=== PATIENT | female | born 1975 | race Caucasian/White ===

== ENCOUNTER 2022-03-02 12:55 | Emergency (ER) | payer MEDICAID, SELFPAY ==
[2022-03-02 13:02] VITALS: BP 154/84; PULSE 76; RESP 16; TEMP 36.8; O2SAT 98; BMI 36.6
--- NOTE | 2022-03-02 13:15 | XR_ITS ---
WS: [id number] Exam: XR shoulder RT min 2V* [id number] Date/Time of Exam: 03/02/2022 1:16 PM Reason For Exam: fall injury There is a nondisplaced fracture of the greater tuberosity humerus. No other fractures of the shoulde r are noted. Soft tissues are unremarkable. The scapula appears to be intact. XR/XR shoulder RT min 2V* [id number] IMPRESSION: 1. Nondisplaced fracture through the greater tuberosity of the humerus. No othe r fractures noted.
--- NOTE | 2022-03-02 14:17 | W.ED.FALL ---
HPI - Fall General: Chief Complaint: Fall Stated Complaint: right arm pain, post fall Time Seen by Provider: 03/02/22 13:15 History of Present Illness: Patient is a 46-year-old female comes in the ED with right shoulder pain. Patient says she injured right shoulder after she fell 2 weeks ago. She rates her pain currently 9 out of 10 and its located in the back of shoulder and in the right upper arm. Pain worsens with any range of motion in shoulder. She has been taking ibuprofen to help with pain. Associated symptoms-after fall: Denies abdominal pain, chest pain, headache(s), hematuria or neck pain Review of Systems Const: Denies: fever(s), chills or fatigue Eyes: Denies: change in vision or eye discomfort ENMT: Denies: throat pain, odynophagia, nasal discharge or nasal congestion Card: Denies: chest pain, palpitations, edema, swelling of feet/ankles, dyspnea on exertion or orthopnea Resp: Denies: dyspnea, productive cough or non-productive cough GI: Denies: abdominal pain, nausea, vomiting, diarrhea, constipation or hematochezia : Denies: flank pain, dysuria or hematuria Musc: Reports: extremity pain (Right shoulder) and limited range of motion (Right shoulder); Denies: neck pain, back pain or extremity swelling Skin/Breast: Denies: rash or new lesions Neuro: Denies: headache(s), numbness in extremities or weakness in extremities [facility] ED PFSH: Medical History No pertinent family history Surgical History No pertinent past surgical history Physical Exam Const: COMMON NORMALS: patient oriented x3 and alert GENERAL APPEARANCE: cooperative HENMT: COMMON NORMALS: normocephalic HEAD & SCALP: normocephalic MOUTH: Normal oral and palatal mucosa present THROAT: posterior oropharynx normal and uvula midline Neck/C-Spine: COMMON NORMALS: supple GENERAL: Yes normal visual inspection Resp: COMMON NORMALS: normal respiratory effort, No retractions, No use of accessory muscles and clear to auscultation bilaterally AUSCULTATION: clear to auscultation bilaterally Cardio: COMMON NORMALS: regular rate, regular rhythm, S1 normal heart sound present, S2 normal heart sound present, No gallops present (Cardio), No clicks present (Cardio), No murmurs present (Cardio) and Peripheral pulses 2+ throughout RATE: regular rate RHYTHM: regular rhythm HEART SOUNDS: S1 normal heart sound present and S2 normal heart sound present PERIPHERAL PULSES: Peripheral pulses 2+ throughout GI: COMMON NORMALS: Normal to inspection, nondistended, normoactive bowel sounds present, Soft to palpation, non-tender and no masses PALPATION: Yes Soft to palpation : COMMON NORMALS: Yes no CVA tenderness BLADDER/KIDNEY EXAM: Yes no CVA tenderness Back/Pelvis: COMMON NORMALS: no CVA tenderness Extremity: COMMON NORMALS: normal to inspection NARRATIVE EXTREMITY EXAM: Patient has some tenderness around the AC joint of right shoulder. Limited range of motion especially abduction of right arm due to pain. Neurovascular intact distally. Neuro: COMMON NORMALS: patient oriented x3 SENSORIUM/ORIENTATION: Yes alert GAIT: Yes Normal gait present Skin: GENERAL SKIN EXAM: dry skin Course Vital Signs: Vital signs: Vital Signs Temperature 98.3 F 03/02/22 13:02 Pulse Rate 76 03/02/22 13:02 Respiratory Rate 16 03/02/22 13:02 Blood Pressure 154/84 03/02/22 13:02 Pulse Oximetry 98 03/02/22 13:02 Oxygen Delivery Me thod 03/02/22 13:02 MDM - Fall Medical Decision Making Patient is a 46-year-old female comes in the ED with right shoulder pain. Patient says she injured right shoulder after she fell 2 weeks ago. She rates her pain currently 9 out of 10 and its located in the back of shoulder and in the right upper arm. Vitals are stable. She has tenderness over the AC joint of right shoulder and limited range of motion especially abduction of right arm due to pain. Neurovascular tact distally. X-ray of right shoulder showed a nondisplaced fracture through the greater tuberosity of the humerus. I placed order with case management for patient be referred to Ortho for follow-up. Patient was placed in a shoulder immobilizer and sent home with a prescription for muscle relaxer and hydrocodone for pain. Return to ED precautions given. Patient understood and agreed with plan. Lab Data Radiology Impressions Shoulder X-Ray 03/02/22 13:15 IMPRESSION: 1. Nondisplaced fracture through the greater tuberosity of the humerus. No other fractures noted. Discharge Plan Discharge Patient Disposition: Home Clinical Impression: Fracture, humerus Qualifiers: Encounter type: initial encounter Humerus Location: greater tuberosity Fracture type: closed Fracture alignment: nondisplaced Laterality: right Qualified Code(s): S42.254A - Nondisplaced fracture of greater tuberosity of right humerus, initial encounter for closed fracture Condition: Stable Prescriptions: New cyclobenzaprine 10 mg tablet 10 mg PO BID PRN (Reason: muscle spasm) Qty: 20 0RF Discharge Orders: Discharge ED (Routine); Ordered 03/02/22 Ordered By: Marcos Vences Discharge Diet: Regular Discharge Activity: Limit activity as instructed Patient Instructions: Arm Fracture in Adults (ED), Opioid Safety Activity Restrictions/Additional Instructions: Follow-up with medical provider as directed. Case management to be counting in the next several days to set up an appointment with Ortho for follow-up on fracture. Wear shoulder immobilizer and limit any activity with right arm until cleared by Ortho. Take medications as prescribed. Return to the ER or your medical provider if condition worsens. Please read and understand discharge instructions. Thank you for choosing [facility] for your healthcare needs today. Please realize this is an emergency room and that we are providing you with a medical screening exam and this may not be complete and all inclusive of all the testing and or work up that you may need to determine your ailment or severity of your illness. It is very important that you follow up as instructed or that you return to the Emergency Department should you have concerns or if your condition changes or worsens in any way. Coding Level of Care Code ED Assisted Living Nursing Director for Ganesh Arguello Exam Comprehensive
[2022-03-02] MEDS: HYDROcodone-acetaminophen 7.5-325 mg Tablet 1 TAB PO (14:20)
--- NOTE | 2022-03-03 09:36 | DCPLANNER ---
Addendum entered by Radha Quinn 04/06/22 07:54: Patient had a follow up appointment scheduled with ortho - patient did attend appointment Addendum entered by Radha Quinn 03/08/22 13:46: Patient has a follow up appointment scheduled for Tuesday, March 15, 2022 at 10:[address] Cr at ortho. Clinic will call patient with appointment information. Original Note: trial manager had message to schedule a follow up appointment for patient with ortho. trial manager sent patients information to the front office staff at ortho. Patients information will be printed and reviewed. Clinic will call patient with appointment information.
== END 2022-03-02 14:58 | disposition home or self-care (01) ==
PROVIDERS: Emergency Provider Physician Assistant
DX: S42.254A Nondisplaced fracture of greater tuberosity of right humerus, initial encounter for closed fracture (principal); W19.XXXA Unspecified fall, initial encounter
CPT/HCPCS: 73030; 99283

== ENCOUNTER → 2022-03-22 14:21 | Outpatient (BNVA) | payer MEDICAID, SELFPAY | PROVIDERS: Referring Provider Physician Assistant; Visit Provider Orthopaedic Surgery | DX: S42.254A Nondisplaced fracture of greater tuberosity of right humerus, initial encounter for closed fracture (principal); W01.0XXA Fall on same level from slipping, tripping and stumbling without subsequent striking against object, initial encounter | CPT/HCPCS: 73030; 99203 ==

== ENCOUNTER → 2022-09-20 07:30 | Outpatient (BNVA) | payer MEDICAID, SELFPAY | PROVIDERS: PCP Family Medicine; Referring Provider Family Medicine; Visit Provider Psychiatry & Neurology Neurology | DX: G24.01 Drug induced subacute dyskinesia (principal); F10.11 Alcohol abuse, in remission; Z86.19 Personal history of other infectious and parasitic diseases; Z85.43 Personal history of malignant neoplasm of ovary; F17.200 Nicotine dependence, unspecified, uncomplicated | CPT/HCPCS: 36415; 80053; 82306; 82607; 82746; 83735; 83921; 84207; 84439; 84443; 84481; 85025; 85651; 86140; 86160; 86162; 86235; 86255; 86376; 86431; 86780; 99203 ==

== ENCOUNTER 2023-05-27 22:14 | Inpatient (IN) | payer MEDICAID, SELFPAY ==
[2023-05-27 22:22] VITALS: BP 148/112; PULSE 117; RESP 20; TEMP 36.3; O2SAT 98; BMI 30.7
--- NOTE | 2023-05-27 22:23 | XRR_ITS ---
PROCEDURE INFORMATION: Exam: XR Chest Exam date and time: 05/27/2023 10:38 PM Age: 47 years old Clinical indication: Patient HX: EMS arrival for hallucinations TECHNIQUE: Imaging protocol: Radiologic exam of the chest. Views: 1 view. COMPARISON: CR XR shoulder RT min 2V* [id number] 03/22/2022 2:45 PM FINDINGS: Lungs: Minimal pulmonary vascular congestion. Pleural spaces: Unremarkable. No pleural effusion. No pneumothorax. Heart/Mediastinum: Unremarkable. No cardiomegaly. Bones/joints: Unremarkable. XR/XR chest 1V portable [id number] IMPRESSION: Minimal pulmonary vascular congestion.
--- NOTE | 2023-05-27 22:57 | ED.C_ITS ---
HPI - Psych General: Chief Complaint: Psychiatric Symptoms Stated Complaint: HALLUCINATIONS Time Seen by Provider: 05/27/23 22:28 History of Present Illness: Patient presents to the ER by EMS with complaints of visual and auditory hallucinations. Patient says these hallucinations are telling her to hurt herself and hurt other people. Patient also voices that she does want to hurt herself. Patient says she had suicidal ideation for about the last 3 days. Patient denies any homicidal ideation currently. Patient also says she has ringing in her ears and thinks it is medication-induced. Patient has been on antipsychotics for a very long time and has had permanent tar dive dyskinesia. Review of Systems General: Reports: 10 or more systems reviewed and unremarkable except in HPI and below PFSH ED PFSH: Medical History Tardive dyskinesia Psychiatric care No pertinent family history Surgical History No pertinent past surgical history Social History Smoking and tobacco/nicotine status: current every day tobacco/nicotine user Alcohol intake: never Substance/Drug Use: never Female Reproductive History: Date of last menstrual period: 04/22/23 Physical Exam Const: COMMON NORMALS: no acute distress, average body habitus, patient oriented x3, no limitations, healthy appearing, alert and well nourished Neck/C-Spine: COMMON NORMALS: no JVD Chest: COMMONS NORMALS: normal inspection of the chest and normal palpation of entire chest wall Resp: COMMON NORMALS: normal respiratory effort, No retractions, No use of accessory muscles and clear to auscultation bilaterally AUSCULTATION: clear to auscultation bilaterally Cardio: COMMON NORMALS: no JVD, regular rate, regular rhythm, S1 normal heart sound present, S2 normal heart sound present, No gallops present (Cardio), No clicks present (Cardio), No murmurs present (Cardio) and No rub (Cardio) RATE: regular rate RHYTHM: regular rhythm HEART SOUNDS: S1 normal heart sound present and S2 normal heart sound present GI: COMMON NORMALS: Normal to inspection, nondistended, normoactive bowel sounds present, Soft to palpation, non-tender, No hepatosplenomegaly present and no masses PALPATION: Yes Soft to palpation and Yes No hepatosplenomegaly present Neuro: COMMON NORMALS: patient oriented x3 SENSORIUM/ORIENTATION: Yes alert Course Vital Signs: Vital signs: Vital Signs Temperature 97.3 F L 05/27/23 22:22 Pulse Rate 117 H 05/27/23 22:22 Respiratory Rate 20 H 05/27/23 22:22 Blood Pressure 148/112 05/27/23 22:22 Pulse Oximetry 98 05/27/23 22:22 Oxygen Delivery Me thod Room Air 05/27/23 22:22 MDM - Psych Medical Decision Making Upon waiting for patient's lab work being returned patient refuses to stay in her room is wandering the halls trying to get out, barking at nurses in other patients. Yelling and screaming. Patient was given a injection of 5 mg of Haldol, 50 mg Benadryl, 2 mg Ativan and nicotine patch. Once patient is cleared medically anticipate patient will be placed on a 96-hour hold and admitted to [facility] for further evaluation and treatment. Dr. Escamilla was consulted who agreed to place patient in [facility] for further evaluation and treatment. Differential Diagnosis Likely suicidal ideation Medical Records I reviewed the patient's medical records. Lab Data I reviewed the patient's lab results. Laboratory Results HCG, Qual Negative (Negative) 05/27/23 22:50 All radiology interpretation(s) finalized by discharge Discharge Plan Discharge Patient Disposition: Admitted As Inpatient Clinical Impression: Acute psychosis, Suicidal ideation Condition: Stable Coding Level of Care Code ED Tool Grinder Operator External for Ganesh Arguello
[2023-05-27 23:12] LABS: HCG Qualitative Urine. Negative (Negative)
[2023-05-27] MEDS: diphenhydrAMINE 50 mg/mL SDV 1mL IM (23:18)
[2023-05-27] MEDS: haloperidol inj 5 mg/mL INJ 1 mL IM (23:19)
[2023-05-27] MEDS: LORazepam 2 mg/mL INJ 10 mL MDV IM (23:19)
--- NOTE | 2023-05-27 23:25 | PC.NURSE ---
Patient placed on 96 hour hold. This nurse and Security Abebe presented patient with 96 hour hold patient rights paperwork. Patient refused rights be read to her by this nurse but did accept copy of 96 hour hold rights paperwork. All questions answered.
[2023-05-28] VITALS (8 sets, daily range): BP systolic 114–157; BP diastolic 71–94; PULSE 76–104; RESP 16–24; TEMP 36.4–36.7; O2SAT 94–98
[2023-05-28 00:43] LABS: Alanine Aminotransferase 17 U/L (0-33); Albumin Level 3.9 g/dL (3.5-5.2); Alkaline Phosphatase 76 U/L (35-105); Anion Gap 15.5 (5-19); Aspartate Amino Transferase 20 U/L (0-32); Blood Urea Nitrogen 10 mg/dL (6-20); Calcium 8.9 mg/dL (8.5-10.5); Carbon Dioxide 20 mmol/L (22-29); Chloride 104 mmol/L (98-107); Creatinine Clr Calc Pharmacy 128.1876; Globulin 3.3 g/dL (1.3-4.6); Glomerular Filtration Rate 107.2 mL/min (90-130); Glucose 115 mg/dL (65-115); Osmolality Calculated 282 mOsm/kg (285-295); Potassium 3.5 mmol/L (3.5-5.1); Sodium 136 mmol/L (136-145); Total Bilirubin 0.3 mg/dL (0.15-1.2); Total Protein 7.2 g/dL (6.6-8.7)
[2023-05-28 00:44] LABS: Acetaminophen < 5.0 ug/mL (10-30); Alcohol Level < 10 mg/dL (0-10); Salicylate < 0.3 mg/dL (3-10)
[2023-05-28 00:49] LABS: Basophils % 0.5 %; Eosinophils # 0.1 10^3/uL (0.0-0.8); Eosinophils % 1.8 %; Hematocrit 35.4 % (36-47); Lymphocytes # 1.5 10^3/uL (0.8-4.8); Lymphocytes % 19.9 %; Mean Corpuscular HGB Conc 31.4 g/dL (30-55); Mean Corpuscular Hemoglobin 25.6 pg (27-33); Mean Corpuscular Volume 81.6 fl (85-98); Monocytes # 0.7 10^3/uL (0.2-0.9); Monocytes % 9.1 %; Neutrophils # 5.03 10^3/uL (1.8-7.7); Neutrophils % 68.4 %; Nucleated Red Blood Cells % 0 %; Platelet Count 201 10^3/cmm (157-399); Red Blood Count 4.34 10^6/uL (3.85-5.65); Red Cell Distribution Width 16.5 % (12.1-15.1); White Blood Count 7.35 10^3/uL (3.29-11.43)
[2023-05-28] MEDS: nicotine 21 mg Patch 1 PATCH TRANSDERMA (01:08)
[2023-05-28 01:22] LABS: Add Urine Microscopic? NO; Charge for UA Resulting for Rev
[2023-05-28 01:26] LABS: Bilirubin Urine Neg (Negative); Blood Urine Neg (Negative); Glucose Urine UA Norm (Normal); Ketones Urine Negative (Negative); Leukocyte Esterase Urine Negative (Negative); Nitrate Urine Negative (Negative); Protein Urine Neg (Negative); Specific Gravity, Urine 1.005 (1.005-1.030); Urine Appearance Clear (CLEAR); Urine Color Yellow (Yellow); Urobilinogen Urine Neg (Negative); pH Urine 6 (5-7)
[2023-05-28 01:38] LABS: Amphetamines Screen Urine Positive (Negative); Barbiturates Screen Urine Negative (Negative); Benzodiazepines Screen Urine Negative (Negative); Cocaine Screen Urine Negative (Negative); Opiate Screen Urine Negative (Negative); PCP Screen Urine Negative (Negative); THC Screen Urine Positive (Negative)
--- NOTE | 2023-05-28 06:00 | PC.NURSE ---
Patient from ED by stretcher. Assisted to bed an changed out. Words were mumbled but cooperative
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
[2023-05-28] MEDS: gabapentin 300 mg Capsule 600 MG PO (21:05)
[2023-05-29 06:00] VITALS: BP 156/92; PULSE 98; RESP 20; TEMP 36.8; O2SAT 97
[2023-05-29] MEDS: CLONazepam 0.5 mg Tablet PO ×2 (08:55→18:01)
[2023-05-29] MEDS: gabapentin 300 mg Capsule 600 MG PO ×3 (08:55→21:23)
[2023-05-29] MEDS: escitalopram 10 mg Tablet PO (08:55)
[2023-05-29 14:00] VITALS: BP 131/81; PULSE 91; RESP 16; TEMP 36.7; O2SAT 96
--- NOTE | 2023-05-29 16:10 | P.NPUPN_ITS ---
Subjective NPU 2 Subjective: Patient presented today reporting that she is doing okay. She denies any current hallucinations and we had a long discussion about the impact of methamphetamine on hallucinations she reported a plan to avoid that but reported that she is hopeful that social work team can help her find a sort of fci setting for discharge. We discussed us meeting in the morning and me trying to understand the goals of this idea and what reasonable options exist given our limitations timewise. We discussed feeling sober living treatment to play a very important role in her wellness. She continued to refuse consideration of any additional medications. Mental Status Exam 2 MSE Comments: This is an overweight versus obese white female in hospital scrubs with limited grooming and eye contact. Poor dentition looking older than her stated age. No abnormal movements except for psychomotor retardation as well as tongue gesticulations consistent with car dive dyskinesia. Cooperative with exam in mild distress. Speech was slightly decreased rate and volume. Mood described as a little down, affect is congruent.? Thought process: linear.?Thought content: patient denies current suicidal or homicidal ideation, paranoia reported and patient appears guarded. She denied current auditory or visual hallucinations but presented with them. Attention and concentration are limited and memory appears mostly reliable but none were formally tested. She is alert and oriented times person and place. ? Insight and judgment limited. Impulse control is limited versus impaired. Vitals/I&O/Wt Last Vital Signs Temp 98.0 F 05/29/23 14:00 Pulse 91 05/29/23 14:00 Resp 16 05/29/23 14:00 BP 131/81 05/29/23 14:00 Pulse Ox 96 05/29/23 14:00 O2 Del Method Room Air 05/29/23 06:00 Weight last 48 hrs Weight 86.183 kg Weight 86.183 kg Data NPU 05/28/23 00:15 05/28/23 00:15 A&P Assessment and plan (1) Acute psychosis: (2) Suicidal ideation: (3) Methamphetamine use disorder, severe: (4) History of bipolar disorder: (5) Tardive dyskinesia: Plan This is a 47-year-old white female with a long history of psychiatric illness and addiction going back many years with history of mental health issues and substance abuse, which are likely contributing to current symptoms. Patient is currently on a 96-hour hold, which will end on the . Patient is ambivalent about initiating new medications or active addiction treatment. 1.? ?Encourage individual ,milieu, and group therapy 2. ? We will attempt to gather collateral information. 3. ? TO-15 minute checks on the unit. 4.? Recommend sober living treatment at the highest level of care to which the patient is willing to commit. 5. Continue current medications. Will continue to recommend antipsychotic for current symptoms. Involuntary Hold Information 2 96 Hour Hold: 96 Hour Involuntary Admission: Yes 96 Hour Hold Ending Date: 06/02/23 96 Hour Hold Ending Time: 00:01 Attestations NPU 2 Medical Necessity Statement*: Inpatient hospitalization is medically necessary and the clinically appropriate intervention at this time. We will monitor/initiate medications and make changes as indicated. Likely length of stay is 3-5 days. Coding Level of Care Code Acute Code for Chg Fwd Diagnoses Acute psychosis F23 Suicidal ideation R45.851 Methamphetamine use disorder, severe F15.20 History of bipolar disorder Z86.59 Tardive dyskinesia G24.01
--- NOTE | 2023-05-29 17:57 | PC.NURSE ---
room searched by staff, no contraband found at this time.
[2023-05-29] MEDS: nicotine 4 mg lozenge MUCOUS MEM ×2 (18:02→21:24)
[2023-05-29 19:36] VITALS: BP 124/74; PULSE 98; RESP 15; TEMP 37.2; O2SAT 99
[2023-05-29] MEDS: trazodone 50 mg Tablet PO (21:22)
[2023-05-29] MEDS: ibuprofen 600 mg Tablet PO (21:23)
[2023-05-29] MEDS: hyDROXYzine 25 mg Capsule 50 MG PO (21:23)
[2023-05-29] MEDS: docusate sodium 100 mg Capsule PO (21:24)
[2023-05-30 05:51] VITALS: BP 119/69; PULSE 73; RESP 15; TEMP 36.6; O2SAT 97
[2023-05-30] MEDS: escitalopram 10 mg Tablet PO (09:43)
[2023-05-30] MEDS: gabapentin 300 mg Capsule 600 MG PO ×3 (09:43→20:54)
[2023-05-30] MEDS: CLONazepam 0.5 mg Tablet PO ×2 (09:43→17:11)
--- NOTE | 2023-05-30 13:01 | P.NPUPN_ITS ---
Subjective NPU 2 Subjective: Patient presented today reporting that she had some reasonable conversations with the social work team and that thoughts about discharge planning were at the heart of the discussions. She reports that they had conversations about the [facility] of [facility] a halfway[facility]residential setting as a possible plan. We agreed that it would be discussed in treatment team tomorrow to understand the commitment the unit would have to make while she was awaiting said placement. She denied any side effects from the medications and endorse a desire to maintain her current regimen. Mental Status Exam 2 MSE Comments: This is an overweight versus obese white female in hospital scrubs with limited grooming and eye contact. Poor dentition looking older than her stated age. No abnormal movements except for psychomotor retardation as well as tongue gesticulations consistent with car dive dyskinesia. Cooperative with exam in mild distress. Speech was slightly decreased rate and volume. Mood described as a little better, affect is congruent.? Thought process: linear.?Thought content: patient denies current suicidal or homicidal ideation, paranoia reported and patient appears guarded. She denied current auditory or visual hallucinations but presented with them. Attention and concentration are limited and memory appears mostly reliable but none were formally tested. She is alert and oriented times person and place. ? Insight and judgment limited. Impulse control is limited versus impaired. Vitals/I&O/Wt Last Vital Signs Temp 97.8 F 05/30/23 05:51 Pulse 73 05/30/23 05:51 Resp 15 05/30/23 05:51 BP 119/69 05/30/23 05:51 Pulse Ox 97 05/30/23 05:51 O2 Del Method Room Air 05/30/23 05:51 Data NPU 05/28/23 00:15 05/28/23 00:15 A&P Assessment and plan (1) Acute psychosis: (2) Suicidal ideation: (3) Methamphetamine use disorder, severe: (4) History of bipolar disorder: (5) Tardive dyskinesia: Plan This is a 47-year-old white female with a long history of psychiatric illness and addiction going back many years with history of mental health issues and substance abuse, which are likely contributing to current symptoms. Patient is currently on a 96-hour hold, which will end on the . Patient is ambivalent about initiating new medications or active addiction treatment. 1.? ?Encourage individual ,milieu, and group therapy 2. ? We will attempt to gather collateral information. 3. ? TO-15 minute checks on the unit. 4.? Recommend sober living treatment at the highest level of care to which the patient is willing to commit. 5. Continue current medications. Will continue to recommend antipsychotic for current symptoms. Involuntary Hold Information 2 96 Hour Hold: 96 Hour Involuntary Admission: Yes 96 Hour Hold Ending Date: 06/02/23 96 Hour Hold Ending Time: 00:01 Attestations NPU 2 Medical Necessity Statement*: Inpatient hospitalization is medically necessary and the clinically appropriate intervention at this time. We will monitor/initiate medications and make changes as indicated. Likely length of stay is 2-4 days. Coding Level of Care Code Acute Code for [facility] Fwd Diagnoses Acute psychosis F23 Suicidal ideation R45.851 Methamphetamine use disorder, severe F15.20 History of bipolar disorder Z86.59 Tardive dyskinesia G24.01
[2023-05-30 14:00] VITALS: BP 120/75; PULSE 86; RESP 16; O2SAT 96
[2023-05-30] MEDS: nicotine 4 mg lozenge MUCOUS MEM ×3 (14:16→19:20)
--- NOTE | 2023-05-30 18:39 | PC.NURSE ---
Room check completed with no contraband recovered.
[2023-05-30] MEDS: ibuprofen 600 mg Tablet PO (19:20)
[2023-05-30 19:39] VITALS: BP 120/76; PULSE 104; RESP 20; TEMP 36.9; O2SAT 98
[2023-05-30] MEDS: trazodone 50 mg Tablet PO (20:53)
[2023-05-30] MEDS: hyDROXYzine 25 mg Capsule 50 MG PO (20:54)
[2023-05-31 05:17] VITALS: BP 103/66; PULSE 75; RESP 16; TEMP 36.8; O2SAT 97
[2023-05-31] MEDS: escitalopram 10 mg Tablet PO (09:11)
[2023-05-31] MEDS: gabapentin 300 mg Capsule 600 MG PO ×3 (09:11→21:30)
[2023-05-31] MEDS: CLONazepam 0.5 mg Tablet PO ×2 (09:12→17:49)
[2023-05-31] MEDS: nicotine 4 mg lozenge MUCOUS MEM ×4 (10:28→22:25)
[2023-05-31] MEDS: nicotine 2 mg Gum BUCCAL ×3 (11:07→17:52)
[2023-05-31 14:00] VITALS: BP 105/69; PULSE 74; RESP 16; TEMP 36.9; O2SAT 98
--- NOTE | 2023-05-31 14:00 | P.NPUPN_ITS ---
Subjective NPU 2 Subjective: Patient presented today reporting that she is struggling with some pain in her neck. We had a long discussion about whether or not she has had tightening of her neck as part of her torticollis. She was unclear about that answer and we discussed consideration of something to treat the tardive dyskinesia more or better versus a possible muscle relaxer. She denied any side effects to current medication. Mental Status Exam 2 MSE Comments: This is an overweight versus obese white female in hospital scrubs with limited grooming and eye contact. Poor dentition looking older than her stated age. No abnormal movements except for psychomotor retardation as well as tongue gesticulations consistent with car dive dyskinesia. Cooperative with exam in mild distress. Speech was slightly decreased rate and volume. Mood described as a little better, affect is congruent.? Thought process: linear.?Thought content: patient denies current suicidal or homicidal ideation, paranoia reported and patient appears guarded. She denied current auditory or visual hallucinations but presented with them. Attention and concentration are limited and memory appears mostly reliable but none were formally tested. She is alert and oriented times person and place. ? Insight and judgment limited. Impulse control is limited versus impaired. Vitals/I&O/Wt Last Vital Signs Temp 98.2 F 05/31/23 05:17 Pulse 75 05/31/23 05:17 Resp 16 05/31/23 05:17 BP 103/66 05/31/23 05:17 Pulse Ox 97 05/31/23 05:17 O2 Del Method Room Air 05/31/23 05:17 Data NPU 05/28/23 00:15 05/28/23 00:15 A&P Assessment and plan (1) Acute psychosis: (2) Suicidal ideation: (3) Methamphetamine use disorder, severe: (4) History of bipolar disorder: (5) Tardive dyskinesia: Plan This is a 47-year-old white female with a long history of psychiatric illness and addiction going back many years with history of mental health issues and substance abuse, which are likely contributing to current symptoms. Patient is currently on a 96-hour hold, which will end on the . Patient is ambivalent about initiating new medications or active addiction treatment. 1.? ?Encourage individual ,milieu, and group therapy 2. ? We will attempt to gather collateral information. 3. ? TO-15 minute checks on the unit. 4.? Recommend sober living treatment at the highest level of care to which the patient is willing to commit. 5. Continue current medications. Will continue to recommend antipsychotic for current symptoms. 6. Continuing to work on discharge options and identifying that the treatment team is still recommending inpatient rehab and that her attempts for an RTF/RCF could work but if she is not sober we fear she will end up creating an obstacle to future placement. Involuntary Hold Information 2 96 Hour Hold: 96 Hour Involuntary Admission: Yes 96 Hour Hold Ending Date: 06/02/23 96 Hour Hold Ending Time: 00:01 Attestations NPU 2 Medical Necessity Statement*: Inpatient hospitalization is medically necessary and the clinically appropriate intervention at this time. We will monitor/initiate medications and make changes as indicated. Likely length of stay is 1-3 days. Coding Level of Care Code Acute Code for [facility] Fwd Diagnoses Acute psychosis F23 Suicidal ideation R45.851 Methamphetamine use disorder, severe F15.20 History of bipolar disorder Z86.59 Tardive dyskinesia G24.01
[2023-05-31] MEDS: ibuprofen 600 mg Tablet PO ×2 (14:03→17:52)
[2023-05-31] MEDS: acetaminophen 325 mg Tablet 650 MG PO ×2 (16:05→22:25)
[2023-05-31] MEDS: sennosides 8.6 mg Tablet 17.1999999999999993 MG PO (18:40)
--- NOTE | 2023-05-31 18:48 | PC.NURSE ---
Pt spoke to this nurse about wanting to get a script for a muscle relaxer, for her RA.
[2023-05-31 19:46] VITALS: BP 107/67; PULSE 98; RESP 16; TEMP 37.2; O2SAT 98
[2023-05-31] MEDS: hyDROXYzine 25 mg Capsule 50 MG PO (21:30)
[2023-05-31] MEDS: trazodone 50 mg Tablet PO (21:31)
[2023-05-31] MEDS: docusate sodium 100 mg Capsule PO (21:31)
[2023-06-01 06:00] VITALS: BP 108/69; PULSE 76; RESP 14; TEMP 36.9; O2SAT 97
[2023-06-01] MEDS: nicotine 4 mg lozenge MUCOUS MEM ×5 (06:14→18:57)
[2023-06-01] MEDS: CLONazepam 0.5 mg Tablet PO ×2 (08:07→17:42)
[2023-06-01] MEDS: escitalopram 10 mg Tablet PO (08:07)
[2023-06-01] MEDS: gabapentin 300 mg Capsule 600 MG PO ×3 (08:07→20:04)
[2023-06-01] MEDS: nicotine 2 mg Gum BUCCAL (11:32)
--- NOTE | 2023-06-01 13:14 | W.PM.NPUPNS ---
Subjective NPU Subjective: Patient presents today reporting that she is doing okay but that she is frustrated that she has to identify as having a problem with methamphetamine because she does not feel it currently is a significant issue. She reports that she had a significant problem in the past but that she feels like it has been a decade since it was something or is even talking about. She reports the episode before she came to the hospital was an outlier. We discussed the fact that we cannot know the authenticity of that report and that there are concerns from her presentation that suggests a bigger problem. She denied any side effects to her medications. Mental Status Exam MSE Comments: This is an overweight versus obese white female in hospital scrubs with limited grooming and eye contact. Poor dentition looking older than her stated age. No abnormal movements except for psychomotor retardation as well as tongue gesticulations consistent with car dive dyskinesia. Cooperative with exam in mild distress. Speech was slightly decreased rate and volume. Mood described as a little better but frustrated, affect is congruent.? Thought process: linear.?Thought content: patient denies current suicidal or homicidal ideation, paranoia reported and patient appears guarded. She denied current auditory or visual hallucinations but presented with them. Attention and concentration are limited and memory appears mostly reliable but none were formally tested. She is alert and oriented times person and place. ? Insight and judgment limited. Impulse control is limited versus impaired. Vitals/I&O/Wt Last Vital Signs Temp 98.5 F 06/01/23 06:00 Pulse 76 06/01/23 06:00 Resp 14 06/01/23 06:00 BP 108/69 06/01/23 06:00 Pulse Ox 97 06/01/23 06:00 O2 Del Method Room Air 06/01/23 06:00 Data NPU 05/28/23 00:15 05/28/23 00:15 A&P Assessment and plan (1) Acute psychosis: (2) Suicidal ideation: (3) Methamphetamine use disorder, severe: (4) History of bipolar disorder: (5) Tardive dyskinesia: Plan This is a 47-year-old white female with a long history of psychiatric illness and addiction going back many years with history of mental health issues and substance abuse, which are likely contributing to current symptoms. Patient is currently on a 96-hour hold, which will end on the . Patient is ambivalent about initiating new medications or active addiction treatment. 1.? ?Encourage individual ,milieu, and group therapy 2. ? We will attempt to gather collateral information. 3. ? TO-15 minute checks on the unit. 4.? Recommend sober living treatment at the highest level of care to which the patient is willing to commit. 5. Continue current medications. Patient denies any plans to make medication changes. 6. Continuing to work on discharge options and identifying that the treatment team is still recommending inpatient rehab and that her attempts for an RTF/RCF could work but if she is not sober we fear she will end up creating an obstacle to future placement. Involuntary Hold Information 96 Hour Hold: 96 Hour Involuntary Admission: Yes 96 Hour Hold Ending Date: 06/02/23 96 Hour Hold Ending Time: 00:01 Attestations U Medical Necessity Statement*: Inpatient hospitalization is medically necessary and the clinically appropriate intervention at this time. We will monitor/initiate medications and make changes as indicated. Likely length of stay is 1-3 days. Coding Level of Care Code Acute Code for [facility] Fwd Diagnoses Acute psychosis F23 Suicidal ideation R45.851 Methamphetamine use disorder, severe F15.20 History of bipolar disorder Z86.59 Tardive dyskinesia G24.01
[2023-06-01 14:00] VITALS: BP 151/84; PULSE 74; RESP 16; TEMP 36.3; O2SAT 97
[2023-06-01] MEDS: ibuprofen 600 mg Tablet PO ×2 (15:59→20:04)
[2023-06-01 19:51] VITALS: BP 142/80; PULSE 87; RESP 18; TEMP 36.9; O2SAT 100
[2023-06-01] MEDS: trazodone 50 mg Tablet PO (20:05)
[2023-06-02 06:00] VITALS: BP 115/68; PULSE 71; RESP 17; TEMP 36.8; O2SAT 97
[2023-06-02] MEDS: escitalopram 10 mg Tablet PO (07:21)
[2023-06-02] MEDS: nicotine 4 mg lozenge MUCOUS MEM ×3 (07:21→16:20)
[2023-06-02] MEDS: gabapentin 300 mg Capsule 600 MG PO ×2 (07:21→16:02)
[2023-06-02] MEDS: CLONazepam 0.5 mg Tablet PO (08:41)
[2023-06-02 09:06] VITALS: BP 100/82; PULSE 75; RESP 16; TEMP 36.4; O2SAT 98
[2023-06-02] MEDS: ibuprofen 600 mg Tablet PO (10:55)
[2023-06-02 12:35] VITALS: BP 136/96; PULSE 95; RESP 16; TEMP 36.6; O2SAT 99
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
[2023-06-02 16:05] VITALS: BP 136/96; PULSE 95; RESP 16; TEMP 36.6; O2SAT 99
== END 2023-06-02 17:18 | disposition home or self-care (01) | DRG 885 ==
LOC: ER 23:37 → NP 23:46
PROVIDERS: Admitting Provider Psychiatry & Neurology Psychiatry; Emergency Provider Emergency Medicine; PCP Family Medicine; Visit Provider Psychiatry & Neurology Psychiatry
DX: F23 Brief psychotic disorder (principal); R45.851 Suicidal ideations; Z59.00 Homelessness unspecified; F15.90 Other stimulant use, unspecified, uncomplicated; G24.01 Drug induced subacute dyskinesia; Z72.0 Tobacco use; R82.5 Elevated urine levels of drugs, medicaments and biological substances
CPT/HCPCS: 36415; 71045; 80053; 80306; 80307; 81003; 81025; 85025; 96372; 97150; 97165; 99285; J1200; J1630; J2060

== ENCOUNTER 2023-06-06 11:07 | Inpatient (IN) | payer MEDICAID, SELFPAY ==
[2023-06-06 11:09] VITALS: BP 152/87; PULSE 114; RESP 16; TEMP 36.8; O2SAT 95
[2023-06-06 11:19] VITALS: BP 152/87; PULSE 114; RESP 16; O2SAT 95
--- NOTE | 2023-06-06 11:20 | W.ED.PSYCHS ---
Documented by User: MARIA C Carreon 06/06/23 12:43 HPI - Psych General: Chief Complaint: Psychiatric Symptoms Stated Complaint: SI Time Seen by Provider: 06/06/23 11:19 Source: patient Mode of arrival: EMS Limitations: no limitations History of Present Illness: Patient is a 47-year-old female presents to ED today shortly after her discharge from [facility] via EMS stating she is homeless and suicidal. Patient was just released from [facility] on 06/01. She was released to [facility] [place] [facility] but states she did not get along with the other individuals there and could not follow the rules . Other report states she was stealing other resident's belongings. Patient states she was eventually kicked out. She then relapsed on methamphetamine and is now having acute psychosis and hallucinations and tells me she is suicidal. Also states she is manic. MD complaint: suicidal ideation, feels depressed, altered mental status and other (psychosis) Onset (ago): hour(s) Duration: constant History of same: Yes Exacerbating factors: drug use Context: recent drug abuse Associated psychiatric symptoms: depression, suicidal ideation, auditory hallucinations and visual hallucinations Associated symptoms: Reports auditory hallucinations, visual hallucinations, depression and suicidal ideation; Deny homicidal ideation Treatments prior to arrival: none If self harm: admits thoughts of self harm Review of Systems Const: Denies: fever(s) or chills Card: Denies: chest pain, palpitations, lightheadedness or syncope Resp: Denies: dyspnea GI: Denies: abdominal pain, nausea, vomiting or diarrhea Skin/Breast: Denies: rash Neuro: Denies: headache(s) Psych: Reports: anxiety, depression, hopelessness, irritability, difficulty concentrating, visual hallucinations, auditory hallucinations and suicidal ideation; Denies: homicidal ideation [facility] ED PFSH: Medical History Tardive dyskinesia Psychiatric care No pertinent family history Surgical History No pertinent past surgical history Social History Smoking and tobacco/nicotine status: current every day tobacco/nicotine user Alcohol intake: never Substance/Drug Use: never Physical Exam Const: COMMON NORMALS: patient oriented x3, no limitations, alert and well nourished GENERAL APPEARANCE: cooperative, disheveled and other (hyperactive; under influence of methamphetamine) Resp: COMMON NORMALS: normal respiratory effort and clear to auscultation bilaterally AUSCULTATION: clear to auscultation bilaterally Cardio: COMMON NORMALS: regular rhythm RATE: tachycardic RHYTHM: regular rhythm Neuro: COMMON NORMALS: patient oriented x3 SENSORIUM/ORIENTATION: Yes alert Psych: COMMON NORMALS: Normal thought process present and cooperative APPEARANCE: Yes disheveled ACTIVITY/MOTOR BEHAVIOR: Yes appropriate eye contact, Yes psychomotor agitation and Yes hyperactivity SPEECH: Yes Pressured speech present MOOD & AFFECT: Yes elevated mood THOUGHT PROCESS: Normal thought process present THOUGHT CONTENT: Yes Suicidality present and Yes Hallucination(s) present ATTENTION/CONCENTRATION: Yes attention grossly impaired and Yes concentration grossly impaired MEMORY/COGNITION: Yes memory grossly intact and Yes cognition grossly intact INSIGHT: Fair insight present (Psych) JUDGEMENT: Fair judgement present (Psych) Course Consultations: Consultation #1: Dr. Escamilla-accepts to [facility] Vital Signs: Vital signs: Vital Signs Temperature 98.0 F 06/06/23 19:32 Pulse Rate 80 06/06/23 19:32 Respiratory Rate 15 06/06/23 19:32 Blood Pressure 103/62 06/06/23 19:32 Pulse Oximetry 96 06/06/23 19:32 Oxygen Delivery Me thod Room Air 06/06/23 19:32 MDM - Psych Medical Decision Making Patient will be admitted to [facility] to Dr. Escamilla for further evaluation of suicidal ideations and hallucinations. Attending physician attestation I discussed the patient's history of present illness, physical exam findings, pertinent labs, pertinent radiographic exams and plan of care with the midlevel provider. I did personally have a [id number] evaluation and discussion with the patient regarding the plan of care and the need for further admission/transfer. Lab Data 06/06/23 11:55 06/06/23 11:55 Laboratory Results WBC 9.00 10^3/uL (3.29-11.43) 06/06/23 11:55 RBC 4.20 10^6/uL (3.85-5.65) 06/06/23 11:55 Hgb 10.80 g/dL (11.27-16.99) L 06/06/23 11:55 Hct 34.1 % (36-47) L 06/06/23 11:55 MCV 81.2 fl (85-98) L 06/06/23 11:55 MCH 25.7 pg (27-33) L 06/06/23 11:55 MCHC 31.7 g/dL (30-55) 06/06/23 11:55 RDW 17.0 % (12.1-15.1) H 06/06/23 11:55 Plt Count 309 10^3/cmm (157-399) 06/06/23 11:55 MPV 10.0 fL (7.4-10.4) 06/06/23 11:55 Neut % (Auto) 70.7 % 06/06/23 11:55 Lymph % (Auto) 14.6 % 06/06/23 11:55 Barron % (Auto) 12.0 % 06/06/23 11:55 Eos % (Auto) 2.1 % 06/06/23 11:55 Baso % (Auto) 0.3 % 06/06/23 11:55 Neut # (Auto) 6.36 10^3/uL (1.8-7.7) 06/06/23 11:55 Lymph # (Auto) 1.3 10^3/uL (0.8-4.8) 06/06/23 11:55 Barron # (Auto) 1.1 10^3/uL (0.2-0.9) H 06/06/23 11:55 Eos # (Auto) 0.2 10^3/uL (0.0-0.8) 06/06/23 11:55 Baso # (Auto) 0.0 10^3/uL (0.0-0.1) 06/06/23 11:55 Nucleated RBC % (auto) 0 % 06/06/23 11:55 Nucleated RBCs # 0.0 /100WBC 06/06/23 11:55 Sodium 136 mmol/L (136-145) 06/06/23 11:55 Potassium 4.5 mmol/L (3.5-5.1) 06/06/23 11:55 Chloride 102 mmol/L (98-107) 06/06/23 11:55 Carbon Dioxide 24 mmol/L (22-29) 06/06/23 11:55 Anion Gap 14.5 (5-19) 06/06/23 11:55 BUN 16 mg/dL (6-20) 06/06/23 11:55 Creatinine 0.7 mg/dL (0.5-0.9) 06/06/23 11:55 GFR Calculation 89.7 mL/min (90-130) L 06/06/23 11:55 Glucose 140 mg/dL (65-115) H 06/06/23 11:55 Calculated Osmolality 285 mOsm/kg (285-295) 06/06/23 11:55 Calcium 8.9 mg/dL (8.5-10.5) 06/06/23 11:55 Total Bilirubin 0.2 mg/dL (0.15-1.2) 06/06/23 11:55 AST 15 U/L (0-32) 06/06/23 11:55 ALT 13 U/L (0-33) 06/06/23 11:55 Alkaline Phosphatase 84 U/L (35-105) 06/06/23 11:55 Total Protein 7.3 g/dL (6.6-8.7) 06/06/23 11:55 Albumin 3.9 g/dL (3.5-5.2) 06/06/23 11:55 Globulin 3.4 g/dL (1.3-4.6) 06/06/23 11:55 HCG, Qual Negative (Negative) 06/06/23 11:55 Salicylates < 0.3 mg/dL (3-10) L 06/06/23 11:55 Acetaminophen < 5.0 ug/mL (10-30) L 06/06/23 11:55 Ethyl Alcohol < 10 mg/dL (0-10) 06/06/23 11:55 No radiology studies performed this visit Discharge Plan Discharge Patient Disposition: Admitted As Inpatient Admit Provider: Bradley Escamilla Clinical Impression: History of bipolar disorder, Tardive dyskinesia, Methamphetamine use disorder, severe Condition: Stable Coding Level of Care Code ED Content Director for Ganesh Arguello Documented by User: Cristino Blanca MD 06/06/23 22:33 HPI - Psych General: Chief Complaint: Psychiatric Symptoms Stated Complaint: SI Time Seen by Provider: 06/06/23 11:19 [facility] ACCESS [facility] ED PFSH: Medical History Tardive dyskinesia Psychiatric care No pertinent family history Surgical History No pertinent past surgical history Social History Smoking and tobacco/nicotine status: current every day tobacco/nicotine user Alcohol intake: never Substance/Drug Use: never Course Vital Signs: Vital signs: Vital Signs Temperature 98.0 F 06/06/23 19:32 Pulse Rate 80 06/06/23 19:32 Respiratory Rate 15 06/06/23 19:32 Blood Pressure 103/62 06/06/23 19:32 Pulse Oximetry 96 06/06/23 19:32 Oxygen Delivery Me thod Room Air 06/06/23 19:32 MDM - Psych Medical Decision Making Attending physician attestation I discussed the patient's history of present illness, physical exam findings, pertinent labs, pertinent radiographic exams and plan of care with the midlevel provider. I did personally have a [id number] evaluation and discussion with the patient regarding the plan of care and the need for further admission/transfer. Lab Data 06/06/23 11:55 06/06/23 11:55 Laboratory Results WBC 9.00 10^3/uL (3.29-11.43) 06/06/23 11:55 RBC 4.20 10^6/uL (3.85-5.65) 06/06/23 11:55 Hgb 10.80 g/dL (11.27-16.99) L 06/06/23 11:55 Hct 34.1 % (36-47) L 06/06/23 11:55 MCV 81.2 fl (85-98) L 06/06/23 11:55 MCH 25.7 pg (27-33) L 06/06/23 11:55 MCHC 31.7 g/dL (30-55) 06/06/23 11:55 RDW 17.0 % (12.1-15.1) H 06/06/23 11:55 Plt Count 309 10^3/cmm (157-399) 06/06/23 11:55 MPV 10.0 fL (7.4-10.4) 06/06/23 11:55 Neut % (Auto) 70.7 % 06/06/23 11:55 Lymph % (Auto) 14.6 % 06/06/23 11:55 Barron % (Auto) 12.0 % 06/06/23 11:55 Eos % (Auto) 2.1 % 06/06/23 11:55 Baso % (Auto) 0.3 % 06/06/23 11:55 Neut # (Auto) 6.36 10^3/uL (1.8-7.7) 06/06/23 11:55 Lymph # (Auto) 1.3 10^3/uL (0.8-4.8) 06/06/23 11:55 Barron # (Auto) 1.1 10^3/uL (0.2-0.9) H 06/06/23 11:55 Eos # (Auto) 0.2 10^3/uL (0.0-0.8) 06/06/23 11:55 Baso # (Auto) 0.0 10^3/uL (0.0-0.1) 06/06/23 11:55 Nucleated RBC % (auto) 0 % 06/06/23 11:55 Nucleated RBCs # 0.0 /100WBC 06/06/23 11:55 Sodium 136 mmol/L (136-145) 06/06/23 11:55 Potassium 4.5 mmol/L (3.5-5.1) 06/06/23 11:55 Chloride 102 mmol/L (98-107) 06/06/23 11:55 Carbon Dioxide 24 mmol/L (22-29) 06/06/23 11:55 Anion Gap 14.5 (5-19) 06/06/23 11:55 BUN 16 mg/dL (6-20) 06/06/23 11:55 Creatinine 0.7 mg/dL (0.5-0.9) 06/06/23 11:55 GFR Calculation 89.7 mL/min (90-130) L 06/06/23 11:55 Glucose 140 mg/dL (65-115) H 06/06/23 11:55 Calculated Osmolality 285 mOsm/kg (285-295) 06/06/23 11:55 Calcium 8.9 mg/dL (8.5-10.5) 06/06/23 11:55 Total Bilirubin 0.2 mg/dL (0.15-1.2) 06/06/23 11:55 AST 15 U/L (0-32) 06/06/23 11:55 ALT 13 U/L (0-33) 06/06/23 11:55 Alkaline Phosphatase 84 U/L (35-105) 06/06/23 11:55 Total Protein 7.3 g/dL (6.6-8.7) 06/06/23 11:55 Albumin 3.9 g/dL (3.5-5.2) 06/06/23 11:55 Globulin 3.4 g/dL (1.3-4.6) 06/06/23 11:55 HCG, Qual Negative (Negative) 06/06/23 11:55 Salicylates < 0.3 mg/dL (3-10) L 06/06/23 11:55 Acetaminophen < 5.0 ug/mL (10-30) L 06/06/23 11:55 Ethyl Alcohol < 10 mg/dL (0-10) 06/06/23 11:55 Discharge Plan Discharge Patient Disposition: Admitted As Inpatient Admit Provider: Bradley Escamilla Clinical Impression: History of bipolar disorder, Tardive dyskinesia, Methamphetamine use disorder, severe Condition: Stable Coding Level of Care Code ED Content Director for Ganesh Arguello
[2023-06-06] MEDS: nicotine 21 mg Patch 1 PATCH TRANSDERMA (11:37)
[2023-06-06 12:04] LABS: Basophils % 0.3 %; Eosinophils # 0.2 10^3/uL (0.0-0.8); Eosinophils % 2.1 %; Hematocrit 34.1 % (36-47); Lymphocytes # 1.3 10^3/uL (0.8-4.8); Lymphocytes % 14.6 %; Mean Corpuscular HGB Conc 31.7 g/dL (30-55); Mean Corpuscular Hemoglobin 25.7 pg (27-33); Mean Corpuscular Volume 81.2 fl (85-98); Monocytes # 1.1 10^3/uL (0.2-0.9); Neutrophils # 6.36 10^3/uL (1.8-7.7); Neutrophils % 70.7 %; Nucleated Red Blood Cells % 0 %; Platelet Count 309 10^3/cmm (157-399)
[2023-06-06 12:11] LABS: Slide Review Slide Review Perform
[2023-06-06 12:24] LABS: Alanine Aminotransferase 13 U/L (0-33); Albumin Level 3.9 g/dL (3.5-5.2); Alkaline Phosphatase 84 U/L (35-105); Anion Gap 14.5 (5-19); Aspartate Amino Transferase 15 U/L (0-32); Blood Urea Nitrogen 16 mg/dL (6-20); Calcium 8.9 mg/dL (8.5-10.5); Carbon Dioxide 24 mmol/L (22-29); Chloride 102 mmol/L (98-107); Creatinine Clr Calc Pharmacy 109.8751; Globulin 3.4 g/dL (1.3-4.6); Glomerular Filtration Rate 89.7 mL/min (90-130); Glucose 140 mg/dL (65-115); Osmolality Calculated 285 mOsm/kg (285-295); Potassium 4.5 mmol/L (3.5-5.1); Sodium 136 mmol/L (136-145); Total Bilirubin 0.2 mg/dL (0.15-1.2); Total Protein 7.3 g/dL (6.6-8.7)
--- NOTE | 2023-06-06 12:24 | PC.NURSE ---
pt attempted to provide urine sample. pt left empty cup in bathroom with blood on rim of cup and spread trash all over the bathroom. I let patient know she needed to pee in the cup next time, she states, I can't magically pee, you're the professional.
[2023-06-06 12:26] LABS: Acetaminophen < 5.0 ug/mL (10-30); Alcohol Level < 10 mg/dL (0-10); Salicylate < 0.3 mg/dL (3-10)
[2023-06-06 12:30] LABS: HCG, Serum Qual Negative (Negative)
[2023-06-06] MEDS: ibuprofen 600 mg Tablet PO (12:38)
--- NOTE | 2023-06-06 13:47 | PC.PHAR ---
pt states she takes the medications entered
--- NOTE | 2023-06-06 13:52 | PC.NURSE ---
pt reports I can't sit long enough to pee without tramadol to help with my spasms . merlin LOMBARDI notified, no new orders at this time
[2023-06-06 15:59] VITALS: BP 97/63; PULSE 73; RESP 18; O2SAT 98
--- NOTE | 2023-06-06 16:00 | PC.NURSE ---
pt still claiming she can't pee at this time
[2023-06-06 16:43] VITALS: BP 114/67; PULSE 86; RESP 18; TEMP 36.9; O2SAT 94
[2023-06-06] MEDS: nicotine 4 mg lozenge MUCOUS MEM (17:10)
[2023-06-06 17:44] LABS: Amphetamines Screen Urine Negative (Negative); Barbiturates Screen Urine Negative (Negative); Benzodiazepines Screen Urine Negative (Negative); Cocaine Screen Urine Negative (Negative); Opiate Screen Urine Negative (Negative); PCP Screen Urine Negative (Negative); THC Screen Urine Positive (Negative)
--- NOTE | 2023-06-06 17:46 | PC.NURSE ---
Patient states she was kicked out of [facility] and that she does not know why. Patient says it may be that I heard or saw something they didn't want me to. She appears to be under the influence of alcohol or drugs, but has not urinated yet for confirmation. Due to this she is unable to answer some questions and/or elaborate at times. Out of nowhere, patient began to cry and talk about her daughter and said her daughter had lost all 4 of her kids and it was because she was doing the same thing she observed her mother (the patient) doing. Patient cooperative with assessment, but did ask for tramadol.
[2023-06-06 19:32] VITALS: BP 103/62; PULSE 80; RESP 15; TEMP 36.7; O2SAT 96
[2023-06-07 06:00] VITALS: BP 143/79; PULSE 85; RESP 14; TEMP 36.9; O2SAT 97
[2023-06-07] MEDS: gabapentin 300 mg Capsule 600 MG PO ×3 (08:29→21:01)
[2023-06-07] MEDS: CLONazepam 0.5 mg Tablet PO ×2 (08:29→17:59)
[2023-06-07] MEDS: escitalopram 10 mg Tablet PO (08:30)
[2023-06-07] MEDS: ibuprofen 600 mg Tablet PO ×2 (08:45→21:01)
[2023-06-07] MEDS: nicotine 4 mg lozenge MUCOUS MEM ×3 (08:45→21:01)
[2023-06-07] MEDS: bismuth subsalicylate 240 mL Btl 15 ML PO (11:50)
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
[2023-06-07 14:00] VITALS: BP 120/85; PULSE 83; RESP 18; TEMP 36.8; O2SAT 97
[2023-06-07] MEDS: acetaminophen 325 mg Tablet 650 MG PO (14:14)
[2023-06-07] MEDS: nicotine 2 mg Gum BUCCAL ×3 (14:17→18:24)
[2023-06-07 19:51] VITALS: BP 123/68; PULSE 75; RESP 14; TEMP 36.8; O2SAT 99
[2023-06-07] MEDS: trazodone 50 mg Tablet PO (21:01)
[2023-06-08 06:00] VITALS: BP 128/78; PULSE 80; RESP 14; TEMP 36.7; O2SAT 98
[2023-06-08] MEDS: CLONazepam 0.5 mg Tablet PO (07:51)
[2023-06-08] MEDS: gabapentin 300 mg Capsule 600 MG PO (07:51)
[2023-06-08] MEDS: nicotine 4 mg lozenge MUCOUS MEM ×2 (07:51→10:43)
[2023-06-08] MEDS: escitalopram 10 mg Tablet PO (07:51)
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
[2023-06-08 10:32] VITALS: BP 128/78; PULSE 80; RESP 14; TEMP 36.7; O2SAT 98
[2023-06-08] MEDS: hyDROXYzine 25 mg Capsule 50 MG PO (10:43)
== END 2023-06-08 12:10 | disposition home or self-care (01) | DRG 885 ==
LOC: ER 11:40 → NP 16:16
PROVIDERS: Admitting Provider Psychiatry & Neurology Psychiatry; Emergency Provider Physician Assistant; PCP Family Medicine; Visit Provider Psychiatry & Neurology Psychiatry
DX: F23 Brief psychotic disorder (principal); R45.851 Suicidal ideations; Z59.00 Homelessness unspecified; F15.90 Other stimulant use, unspecified, uncomplicated; G24.01 Drug induced subacute dyskinesia; Z76.5 Malingerer [conscious simulation]; Z72.0 Tobacco use
CPT/HCPCS: 80053; 80306; 80307; 84703; 85025; 97165; 99285